=== PATIENT | male | born 1965 | race Caucasian/White ===

== ENCOUNTER 2023-04-24 08:19 | Emergency (ER) | payer SELFPAY ==
[2023-04-24 08:26] VITALS: BP 126/78; PULSE 100; RESP 16; TEMP 36.6; O2SAT 97
--- NOTE | 2023-04-24 08:49 | ED.SKABFB ---
HPI - Skin/Abscess/Foreign Bdy General Chief complaint: Skin/Abscess/Foreign Body Stated complaint: under chin swollen Time Seen by Provider: 04/24/23 08:49 Source: patient, RN notes reviewed and old records reviewed Mode of arrival: ambulatory Limitations: no limitations History of Present Illness HPI narrative: 57 year old male presents to express care with some swelling under his chin with some tenderness to area. Patient is edentulous and denies any recent illness, no fevers chills, or acute sore throat. Patient reports no trouble with his breathing or with swallowing.No hard palpable tissue noted tenderness mainly to left side under jaw area on neck. MD complaint: other (swelling under chin with some tenderness.) Onset (ago): day(s) (this morning) Severity: mild Treatments prior to arrival: none Related Data Allergies Allergy/AdvReac Type Severity Reaction Status Date / Time aspirin Allergy Unknown Verified 04/24/23 08:30 Review of Systems Review of Systems: CONSTITUTIONAL: Denies fever, chills, or sweats. EYES: Denies visual changes, redness, or discharge. ENT: Denies rhinorrhea, congestion,acute sore throat, or otalgia. swelling in neck especially tender to left side of jaw in neck CARDIOVASCULAR: Denies chest pain, palpitations, or edema. RESPIRATORY: Denies cough or dyspnea. GASTROINTESTINAL: Denies abdominal pain, nausea, vomiting, or diarrhea. GENITOURINARY: Denies dysuria or hematuria. SKIN: Denies rash or itching. MUSCULOSKELETAL: Denies back pain, joint pain, or myalgia. NEUROLOGIC: Denies headache, numbness, or weakness. PSYCHIATRIC: Denies anxiety or depression. All systems reviewed & are unremarkable except as noted in HPI and below PMFSH Social History Social History (Updated 04/25/23 @ 08:16 by Mary Pinon NP) Smoking packs per day: 1 Smoking cigarettes per day: 20.0 Years smoked: 30 Smoking pack-years: 30.00 Smoking status: Current every day smoker Alcohol intake: current Alcohol use details: rare use Substance use type: does not use Living arrangements: with family Gender identity (if verbalized by the patient): Male Comments At time of signature, agree with nursing past medical, surgical, social and family history. There is no relevant family history pertinent to the presenting complaint Exam Narrative: GENERAL: Well-appearing, well-nourished, and in no acute distress. HEAD: Normocephalic, atraumatic. EYES: PERRLA and EOMI. ENT: Nares clear, no rhinorrhea or epistaxis. Mucous membranes moist. NECK: Supple. swelling of tissue under chin with palpable tenderness to left side of neck under chin, no firmness of tissue or any redness. CHEST: Clear to auscultation. No respiratory distress. SAO2 97% on room air HEART: Regular rate and rhythm. No murmur heard. Normal peripheral pulses., denies any dyspnea ABDOMEN: Soft, nontender, nondistended, normal active bowel sounds., EXTREMITIES: Normal range of motion. No edema. SKIN: Warm, dry, no rash. NEURO: No focal deficits. Alert and oriented x3. face is symmetrical, cranial nerves intact with no deficit. Course Course Emergency Course: Patient is aware of diagnosis, understands and agrees to treatment plan.? Anticipatory guidance given.? Patient agrees to follow-up as directed and is aware of reasons to seek care at the emergency department. Portions of this record may have been created with voice recognition software Level of Care: Express Care Visit Vital Signs Vital signs: Vital Signs Temperature 36.6 C 04/24/23 08:26 Pulse Rate 100 04/24/23 08:26 Respiratory Rate 16 04/24/23 08:26 Blood Pressure 126/78 04/24/23 08:26 Pulse Oximetry 97 04/24/23 08:26 Oxygen Delivery Room Air 04/24/23 08:26 Temperature 36.6 C 04/24/23 08:26 Pulse Rate 100 04/24/23 08:26 Respiratory Rate 16 04/24/23 08:26 Blood Pressure 126/78 04/24/23 08:26 Pulse Oximetry 97 04/24/23 08:26 Oxygen Deliver
== END 2023-04-24 09:22 | disposition home or self-care (01) ==
PROVIDERS: Emergency Provider Registered Nurse
DX: R22.0 Localized swelling, mass and lump, head (principal); F17.210 Nicotine dependence, cigarettes, uncomplicated
CPT/HCPCS: 99213; G0463